=== PATIENT | male | born 1995 | race Hispanic/Latino ===

== ENCOUNTER 2018-05-17 15:51 | Day surgery (SDC) ==
[~2018-05-17 15:51] MED LIST: Dexamethasone 20 MG/5 ML VIAL ONE; Glycopyrrolate 0.2 MG/ML 5 ML SYRINGE ONE; Ketorolac Tromethamine 30 MG/ML VIAL ONE; Lidocaine 1% PF 5 ML VIAL ONE; Ondansetron PF 4 MG/2 ML Vial ONE; PROPOFOL 200 MG/20 ML VIAL ONE; Succinylcholine Chloride 20 MG/ML 10 ml SYRINGE FS ONE
[2018-05-17] MEDS ORDERED: Bupivacaine/Epinephrine 0.25% 30 ML VIAL ONE (17:26)
[2018-05-17] MEDS ORDERED: cefOXitin Sodium 1 GM in Sodium Chloride 0.9% 100 ML IVPB SCH (17:30)
[2018-05-17] MEDS ORDERED: Fentanyl 100 MCG/2 ML VIAL ONE (17:36)
--- NOTE | 2018-05-17 20:27 | HP ---
CHIEF COMPLAINT: Right lower quadrant abdominal pain. HISTORY OF PRESENT ILLNESS: The patient is a 22-year-old male who presented with 15 hour history of right lower quadrant pain associated with nausea, no vomiting. CT scan shows appendicitis. PAST MEDICAL HISTORY: Otherwise healthy. PAST SURGICAL HISTORY: None. MEDICATIONS: None. ALLERGIES: No known drug allergies. SOCIAL HISTORY: He is a student. No tobacco, occasional alcohol. FAMILY HISTORY: Noncontributory. PHYSICAL EXAMINATION: VITAL SIGNS: Temperature 98, pulse 59, blood pressure 128/78. GENERAL: Well-developed, well-nourished male in no apparent distress. HEENT: Unremarkable. LUNGS: Clear. HEART: Regular rate and rhythm. ABDOMEN: Soft and tender in the right lower quadrant to percussion. LABORATORY DATA AND IMAGING DATA: White count 15.4, hemoglobin and hematocrit is 16 and 48, platelet count 217. Electrolytes are fine. CT shows appendicitis. ASSESSMENT: Acute appendicitis. PLAN: Laparoscopic appendectomy. CONSENT: I discussed the planned procedure as well as risk of bleeding, infection, injury to bladder , bowel, need to open. He understands and gives informed consent.
--- NOTE | 2018-05-17 21:52 | OP ---
PREOPERATIVE DIAGNOSIS: Acute appendicitis. SURGEON: Alexi Gan M.D. PROCEDURE PERFORMED: Laparoscopic appendectomy. INDICATIONS: This is a 22-year-old male with a 15-hour history of right lower quadrant pain. CT sca n showed appendicitis. FINDINGS: Acute gangrenous nonperforated appendicitis. PROCEDURE IN DETAIL: After informed consent was obtained, the patient was taken to the operating shy m and given general endotracheal anesthesia, placed in the supine position. The abdomen was prepped and draped in usual fashion. Local anesthesia infiltrated subcutaneously and deep and a subumbilical incision was performed. The subcu divided sharply. The fascia grasped and two stay sutures of 0 Vi cryl placed through either side of midline. Midline incised. Digital palpation revealed no local ad hesions. A blunt 10/12 mm trocar inserted. Pneumoperitoneum was created to a pressure of 15 mmHg. Zero degree laparoscope inserted under direct vision, two 5-mm ports were placed, one suprapubic and one right lateral abdomen. The appendix was grasped. The mesoappendix divided utilizing the LigaSur e. The base of the appendix was divided with the linear 45 mm stapler. It was placed in an Endosac and removed from the abdomen in the Endosac. Hemostasis assured. The abdomen irrigated and irrigati on fluid removed. Trocars and retractors removed. The fascia closed with interrupted 0 Vicryl sutur e. The skin closed with interrupted 4-0 Rapide. Dermabond applied. The patient tolerated the proce dure well and was transferred to recovery in good condition. Sponge and needle count verified correc t x2.
== END 2018-05-17 19:58 | disposition home or self-care (01) ==
LOC: SDC 15:51
PROVIDERS: ATTEND Surgery
PROC: 0DTJ4ZZ Resection of Appendix, Percutaneous Endoscopic Approach (ICD-10-PCS; principal; 2018-05-17)
DX: K35.31 Acute appendicitis with localized peritonitis and gangrene, without perforation (principal)
CPT/HCPCS: 88304; J0694; J1100; J1885; J2001; J2405; J2704; J3010; J7050